=== PATIENT | female | born 1990 | race Two or more races ===

== ENCOUNTER 2022-10-10 00:26 | Emergency (ER) | payer OTHER ==
[~2022-10-10] VITALS: Ht 157.5 cm; Wt 68.9 kg
--- NOTE | 2022-10-10 00:27 | NUR ---
2359- pt offloaded to bed 10 [place]
[2022-10-10 00:28] VITALS: BP 93/71
--- NOTE | 2022-10-10 00:34 | NUR ---
32 yo f biba from home with c/c of witnessed seizure. per ems pt was found on living room floor unconcious, states mother witnessed seizure, lasted about 1 min. reports pt has been drinking alcohol tonight. ems reports pt seized on route, given 5mg of verced intranasal with relief. pt states she has not taken seizure medication for about 1 wk. no injuries observed. reports 10/10 h/a. hx:epliepsy, depression rx:topramax, antidepressants (noncompliant) allergy to pcn
[2022-10-10 00:51] LABS: BASOPHILS # (AUTO) 0.1 K/uL (0.00-0.22); EOSINOPHILS # (AUTO) 0.2 K/uL (0-0.4); EOSINOPHILS % (AUTO) 2.8 % (0.0-4.0); HEMATOCRIT 36.6 % (36-48); HEMOGLOBIN 12.7 g/dL (12.0-16.0); LYMPHOCYTES # (AUTO) 2.9 K/uL (2.5-16.5); LYMPHOCYTES % (AUTO) 47.8 % (20.5-51.1); MEAN CORPUSCULAR HEMOGLOBIN 30 pg (27-31); MEAN CORPUSCULAR HGB CONC 35 g/dL (33-37); MEAN CORPUSCULAR VOLUME 86.9 fL (80-94); MONOCYTES # (AUTO) 0.3 K/uL (0.8-1.0); MONOCYTES % (AUTO) 4.7 % (1.7-9.3); NEUTROPHILS # (AUTO) 2.6 K/uL (1.8-7.7); NEUTROPHILS % (AUTO) 43.7 % (42.2-75.2); PLATELET COUNT (AUTO) 185 K/uL (140-450); RED BLOOD CELL COUNT(AUTO) 4.21 MIL/uL (4.20-5.40); RED CELL DISTRIBUTION WIDTH 12.2 % (11.6-13.7)
--- NOTE | 2022-10-10 01:15 | NUR ---
straight cathed for ua, sent to lab
[2022-10-10 01:28] LABS: ALBUMIN 3.5 g/dL (3.4-5.0); ANION GAP 16.6 (8-16); CARBON DIOXIDE 20.6 mmol/L (21-32); CREATININE 0.7 mg/dL (0.6-1.3); MAGNESIUM 1.8 mg/dL (1.8-2.4); POTASSIUM 3.2 mmol/L (3.5-5.1); TOTAL BILIRUBIN 0.3 mg/dL (0.0-1.0)
[2022-10-10 01:33] LABS: APPEARANCE,URINE CLEAR (CLEAR); BILIRUBIN,URINE NEGATIVE (NEGATIVE); BLOOD, URINE TRACE-I (NEGATIVE); COLOR,URINE YELLOW (YELLOW); LEUKOCYTE ESTERASE ,URINE NEGATIVE (NEGATIVE); NITRITE, URINE NEGATIVE (NEGATIVE); UGLUCOSE NEGATIVE (NEGATIVE)
[2022-10-10 01:44] LABS: BARBITURATE, URINE NEGATIVE ng/ml (NEG <=200); BENZODIAZEPINE, URINE NEGATIVE ng/mL (NEG <=200); CANNABINOID, URINE NEGATIVE ng/mL (NEG <=50); COCAINE, URINE NEGATIVE ng/mL (NEG <=300); OPIATE, URINE NEGATIVE ng/mL (NEG <=2000); PHENCYCLIDINE SCREEN,URINE NEGATIVE ng/mL (NEG <=25)
--- NOTE | 2022-10-10 01:45 | NUR ---
PT GAVE PERMISSION TO GIVE INFO AND UPDATES TO MOTHER CRISTINA
[2022-10-10 02:06] LABS: RBC,URINE 0-5 /HPF (0-5); WBC,URINE 0-5 /HPF (0-5)
[2022-10-10] MEDS ORDERED: POTASSIUM CHLORIDE 10 MEQ TABER PO ONE (02:15)
[2022-10-10] MEDS ORDERED: TOPIRAMATE 25 MG TAB PO ONE (02:25)
--- NOTE | 2022-10-10 02:50 | NUR ---
PT AMBULATED TO WITH STEADY GAIT AND BACK TO BED
[2022-10-10 03:20] VITALS: BP 93/71
--- NOTE | 2022-10-10 03:20 | NUR ---
Patient discharged with v/s stable. Written and verbal after care instructions given and explained. Patient verbalized understanding. Ambulatory with steady gait. All questions addressed prior to discharge. Advised to follow up with PMD.
== END 2022-10-10 03:20 | disposition home or self-care (01) ==
LOC: MED 00:26
DX: R56.9 Unspecified convulsions (principal); F10.129 Alcohol abuse with intoxication, unspecified; Z91.199 Patient's noncompliance with other medical treatment and regimen due to unspecified reason; Z88.0 Allergy status to penicillin; Y90.9 Presence of alcohol in blood, level not specified
CPT/HCPCS: 36415; 80053; 80305; 81001; 83735; 84703; 85025; 93005; 99284; G0482